=== PATIENT | male | born 1995 | race African-American/Black ===

== ENCOUNTER 2019-02-24 18:50 | Emergency (ER) | payer MEDICAID ==
[~2019-02-24] VITALS: Ht 160 cm; Wt 55.0 kg
[2019-02-24 20:54] VITALS: BP 107/56
[2019-02-24] MEDS ORDERED: IBUPROFEN 600MG TABLET PO ONE (21:45)
== END 2019-02-24 23:39 | disposition home or self-care (01) ==
LOC: ER 18:50
DX: S93.401A Sprain of unspecified ligament of right ankle, initial encounter (principal); W22.8XXA Striking against or struck by other objects, initial encounter; Y93.89 Activity, other specified; Y92.89 Other specified places as the place of occurrence of the external cause; S90.31XA Contusion of right foot, initial encounter
CPT/HCPCS: 29515; 73610; 73630; 99283